=== PATIENT | female | born 1970 | race Caucasian/White ===

== ENCOUNTER → 2017-08-22 12:24 | Outpatient (CLI) | payer MEDICAID, SELFPAY ==
--- NOTE | 2017-08-22 12:28 | US_ITS ---
US transvaginal CLINICAL INDICATION: ITS.REASON: HEAVY BLEEDING ORDERING PHYSICIAN: Armani Mg MD PATIENT AGE: 46 years COMPARISON: None FINDINGS: Uterus measures 9 x 4 x 5 cm with a combined endometrial thickness of 7 mm. There is an IUD present within the mid aspect of the endometrial canal. No uterine mass. The right ovary is 4 x 4 cm and contains a 2.4 cm cyst. There are some internal echoes involving the cyst. The left ovary is 3 x 3 cm and has an unremarkable appearance. No cul-de-sac fluid evident. IMPRESSION: 1. IUD in place. 2. 2.4 cm right ovarian cyst showing some internal echoes. Follow-up suggested
== END ==
PROVIDERS: PCP Internal Medicine Adolescent Medicine; Visit Provider Nurse Practitioner Obstetrics & Gynecology
DX: N93.9 Abnormal uterine and vaginal bleeding, unspecified (principal)
CPT/HCPCS: 76830

== ENCOUNTER → 2017-09-09 10:18 | Outpatient (CLI) | payer MEDICAID, SELFPAY ==
[2017-09-09 10:39] LABS: Basophils % 0.3 % (0.1-2.0); Eosinophils # 0.1 K/mm3 (0.0-0.4); Eosinophils % 1.9 % (0.1-12.0); Hematocrit 44.4 % (37.0-47.0); Hemoglobin 14.5 g/dL (12.2-16.2); Lymphocytes # 1.6 K/mm3 (0.7-4.5); Lymphocytes % 27.6 K/mm3 (10-50); Mean Corpuscular HGB Conc 32.8 g/dL (31.8-35.4); Mean Corpuscular Hemoglobin 30.5 pg (27.0-31.2); Mean Corpuscular Volume 93.1 fl (81-99); Mean Platelet Volume 8.3 fl (7.4-10.4); Monocytes # 0.4 K/mm3 (0.1-1.0); Neutrophils # 3.8 K/mm3 (1.8-7.8); Neutrophils % 63.2 % (37.0-80.0); Platelet Count 207 K/mm3 (142-424); Red Blood Count 4.77 M/mm3 (4.20-5.40); Red Cell Distribution Width 12.3 % (11.5-17.5); White Blood Count 5.9 K/mm3 (4.8-10.8)
[2017-09-09 15:30] LABS: Anion Gap 9.1 mEq/L (5-15); Blood Urea Nitrogen 9 mg/dL (7-18); Carbon Dioxide 30 mmol/L (21.0-32.0); Chloride 103 mmol/L (98-107); Creatinine,Serum 0.63 mg/dL (0.55-1.02); Estimated Glomerular Filt Rate 102 ml/min (>60); GFR (African American) 124 ML/MIN (>60); Glucose 117 mg/dL (74-106); Potassium 4.1 mmoL/L (3.5-5.1); Sodium 138 mmol/L (136-145)
[2017-09-09 15:51] LABS: HCG,Quantitative 0 mIU/mL
== END ==
PROVIDERS: PCP Nurse Practitioner Family; Visit Provider Nurse Practitioner Obstetrics & Gynecology
DX: N92.0 Excessive and frequent menstruation with regular cycle (principal); Z01.812 Encounter for preprocedural laboratory examination
CPT/HCPCS: 36415; 80048; 84702; 85025

== ENCOUNTER 2017-09-11 06:08 | Day surgery (SDC) | payer MEDICAID, SELFPAY ==
[2017-09-08 13:15] VITALS: BMI 23.8
[2017-09-11] VITALS (9 sets, daily range): BP systolic 98–147; BP diastolic 60–85; PULSE 66–87; RESP 16–18; TEMP 36.4–36.7; O2SAT 96–98
[2017-09-11 06:39] LABS: Urine Pregnancy, HCG Qual. Negative (Negative)
[2017-09-11 07:00] LABS: Basophils % 0.4 % (0.1-2.0); Eosinophils # 0.2 K/mm3 (0.0-0.4); Eosinophils % 2.6 % (0.1-12.0); Hematocrit 41.5 % (37.0-47.0); Hemoglobin 13.5 g/dL (12.2-16.2); Lymphocytes # 1.6 K/mm3 (0.7-4.5); Lymphocytes % 24.8 K/mm3 (10-50); Mean Corpuscular HGB Conc 32.7 g/dL (31.8-35.4); Mean Corpuscular Hemoglobin 30.4 pg (27.0-31.2); Mean Corpuscular Volume 92.9 fl (81-99); Mean Platelet Volume 8.8 fl (7.4-10.4); Monocytes # 0.5 K/mm3 (0.1-1.0); Monocytes % 7.8 % (1.7-9.3); Neutrophils # 4.2 K/mm3 (1.8-7.8); Neutrophils % 64.4 % (37.0-80.0); Platelet Count 183 K/mm3 (142-424); Red Blood Count 4.46 M/mm3 (4.20-5.40); Red Cell Distribution Width 12.3 % (11.5-17.5); White Blood Count 6.6 K/mm3 (4.8-10.8)
--- NOTE | 2017-09-11 07:01 | P.PN_ITS ---
[facility] Anesthesia Checklist - Patient Identification Patient Identification: Arm Band - Structural Data Admitted From: Home Planned Operative Procedure/s: Hysteroscopy, D&C Novasure Ablation Consent for Planned Operative Procedure(s) Verified: Yes Verified Documents: Surgical Consent, History and Physical - Additional verifications Anesthesia Reactions: No - Airway Assessment C-Spine Mobility Assessed: Yes TMJ Mobility Assessed: Yes Dentition: Good Dentition - Neurological Assessment Level of Consciousness: Awake, Alert - Anesthesia Plan Anesthesia Risk discussed: Yes Anesthesia Plan: Verified ASA Class: II Anesthesia Type: General [facility] Anesthesia HX I have reviewed the patient's past medical history: Yes Medical History: Denies:: Cancer, Diabetes Mellitus Type 1, Diabetes Mellitus Type 2, MRSA, Seizures Comment: smoker Other Surgeries: Yes: , Tubal Ligation Amputation: No Fractures: No *Family Hx:: Asthma, Diabetes
[2017-09-11 07:06] LABS: Anion Gap 6.3 mEq/L (5-15); Blood Urea Nitrogen 7 mg/dL (7-18); Carbon Dioxide 29 mmol/L (21.0-32.0); Chloride 107 mmol/L (98-107); Creatinine Clearance Estimated 102 mL/min (0-300); Creatinine,Serum 0.65 mg/dL (0.55-1.02); Estimated Glomerular Filt Rate 99 ml/min (>60); GFR (African American) 119 ML/MIN (>60); Glucose 96 mg/dL (74-106); Potassium 4.3 mmoL/L (3.5-5.1); Sodium 138 mmol/L (136-145)
--- NOTE | 2017-09-11 07:55 | P.OP_ITS ---
Date of procedure: 09/11/17 Pre-op Diagnosis:: Menorrhagia Post-op diagnosis:: same Procedure performed:: Hysteroscopy, dilation and curettage, NovaSure ablation, removal of Mirena IUD Surgeon:: Armani Mg MD DIRECTOR OF QUALITY CONTROL:: Geoffrey Machuca Anesthesia: LMA Estimated blood loss (mL): 50 Clinical Note:: She is a 47-year-old lady who complains of extremely heavy irregular periods. She has no daily spotting. She has had an endometrial biopsy which was negative for hyperplasia. We have tried a Mirena IUD. After having discussed the risks and benefits she elected to have a hysteroscopy, D&C and NovaSure ablation. She has had a previous tubal ligation. Operative findings:: She had an anteverted uterus that sounded to 9 cm. The width was 4.6 cm and the length of the endometrial cavity was 5.5 cm. She had what appeared to be a small 2 mm polyp at the right cornua of the uterine cavity. Operative note:: She was taken to the operating room where LMA anesthesia was found to be adequate. She was prepped and draped in normal sterile fashion in the lithotomy position. A weighted speculum was placed in the vagina and the anterior lip of the cervix was grasped with a tenaculum. I dilated the cervix to 4 mm. I then grasped her IUD with a packing forceps and removed this easily. I then further dilated the cervix and inserted a hysteroscope into the uterine cavity. The findings were as previously dictated. We then sounded the uterus to 9 cm and inserted the NovaSure device within the uterine cavity. It was 5.5 cm long and 4.6 cm wide. These values were placed into the NovaSure device. We then ran the device to its program. At the end of the procedure I then once again inspected the endometrial cavity and it seemed to be completely charred. I then injected 30 cc of 0.5% ropivacaine at the 3:00, 5:00, 7:00, and 9:00 positions of the cervix. The patient tolerated the procedure well and was taken to the recovery room in excellent condition. All sponge instrument counts were correct. The estimated blood loss was less than 50 cc. Condition: stable Disposition: PACU Specimens:: Endometrial curettings Complications:: None
--- NOTE | 2017-09-11 07:59 | P.PN_ITS ---
[facility] Anesthesia Record Part I Intake, IV Amount: 250 Estimated blood loss (mL): 24 Urine output (mL): 250 Blood Products used (#): none Blood Pressure: 113/69 SaO2: 96 Pulse Rate: 83 Respiratory Rate: 18 Temperature: 97.6 F Patient is:: Drowsy, Mask O2 Stable to PACU at:: 07:56
--- NOTE | 2017-09-11 07:59 | HMH.ANESII ---
[facility] Anesthesia Record Part II Discharge Time: 08:26 Destination: Surgical Day Care (OP Surgery) PACU nurse assessment reviewed?: Yes Patient Condition:: Good Anesthesia Complications:: None
--- NOTE | 2017-09-11 09:41 | PC.NURSE ---
0756-REPORT RECIEVED FROM NORMA STAHL.
--- NOTE | 2017-09-11 09:48 | PC.NURSE ---
0808-PT REPORTS ABDOMINAL CRAMPING. RATES PAIN 6/10. MEDICATED PER MAR W/MORPHINE 2MG IV. VSS 0813-PT REPORTS ABDOMINAL CRAMPING NOT EASING AND RATES 6/10. MEDICATED PER MAR W/MOPRHINE 2MG IV. VSS. PT EATING ICE CHIPS W/OUT DIFFICULTY. DENIES NAUSEA.
--- NOTE | 2017-09-11 09:51 | PC.NURSE ---
0815-REDNESS AND ITCHING NOTED TO RIGHT FOREARM AFTER PT MEDICATED W/MOPRHINE PER IV. FLUSHED IV SITE WITH 10ML'S NORMAL SALINE AND REDNESS/ITCHING IMPROVED. WILL CONTINUE TO MONITOR.
--- NOTE | 2017-09-11 09:56 | PC.NURSE ---
0819-PT REPORTS ABD CRAMPING WORSENING AND RATES 03/30. MEDICATED PER OCT W/MOPRHINE 2MG IV. VSS. FLUSHED IV SITE WITH 10ML'S NORMAL SALINE AFTER ADMINISTERING MORPHINE R/T REDNESS TO FOREARM ABOVE IV SITE. WILL CONTINUE TO MONITOR. 0824-PT CONTINUES TO EAT ICE CHIPS W/OUT DIFFICULTY. PT REPORTS ABD CRAMPING EASING. PT DENIES NAUSEA. DETAILED REPORT CALLED TO JUAN ANTONIO BARRON. 0826-PT TRANSPORTED TO POST OP VIA STRETCHER W/RAILS UP AND LEFT IN CARE OF JUAN ANTONIO BARRON W/BED LOCKED IN LOWEST POSITION. VSS. PT STABLE.
== END 2017-09-11 09:18 | disposition home or self-care (01) ==
LOC: OR 06:09
PROVIDERS: PCP Nurse Practitioner Family; Visit Provider Nurse Practitioner Obstetrics & Gynecology
PROC: 0U5B8ZZ Destruction of Endometrium, Via Natural or Artificial Opening Endoscopic (ICD-10-PCS; CPT 58563; principal; 2017-09-11 07:30)
DX: N92.0 Excessive and frequent menstruation with regular cycle (principal)
CPT/HCPCS: 58563; 58120; 58301; 80048; 81025; 85025; 96374; J0330; J2405

== ENCOUNTER → 2019-03-22 08:46 | Outpatient (CLI) | payer MEDICAID, SELFPAY ==
--- NOTE | 2019-03-22 08:50 | FL_ITS ---
FL barium swallow COMPARISON: None HISTORY: Dysphasia, patient states intermittently choking on food and/or saliva TECHNIQUE: Fluoroscopy while drinking barium FINDINGS: The swallowing function is normal. Spot films of the cervical esophagus show no abnormal anterior or posterior indentation of the barium column. There is no significant degenerative changes of the cervical spine. Soft motility is normal. There is a small sliding hiatal hernia noted. There is no gastroesophageal reflux seen during the study. IMPRESSION: Small sliding hiatal hernia otherwise unremarkable study
== END ==
PROVIDERS: PCP Nurse Practitioner Family; Visit Provider Surgery
DX: R13.10 Dysphagia, unspecified (principal)
CPT/HCPCS: 74220

== ENCOUNTER 2020-03-04 21:54 | Emergency (ER) | payer OTHER, SELFPAY ==
--- NOTE | 2020-03-04 22:06 | XR_ITS ---
PROCEDURE: XR WRIST LT MIN 3V CLINICAL INDICATION: pain COMPARISON: No exams were available for comparison FINDINGS: No fracture or dislocation. No lytic or blastic change. There is normal mineralization. The joint spaces are well-preserved. No significant degenerative/arthritic changes. No erosive changes evident. Other findings:None. IMPRESSION: No acute findings. Dictated by: Yaniv Russo MD 03/05/2020 05:24 Electronically signed by Yaniv Russo MD in [place] 03/05/2020 05:24
[2020-03-04 22:08] VITALS: BP 157/90; PULSE 76; RESP 18; TEMP 37.7; O2SAT 99; BMI 22.8
--- NOTE | 2020-03-04 23:10 | CT_ITS ---
PROCEDURE: CT WRIST LT WO CON CLINICAL HISTORY: Fall injury Posttraumatic pain, pain with injury and swelling near the thumb COMPARISON: No exams were available for comparison TECHNIQUE: Axial images obtained with sagittal and coronal reformats. All CT scans at the facility use one or more dose reduction, viz: automated exposure control, ma/kV adjustment per patient size (including targeted exams where dose is matched to indication, i.e. head), or iterative reconstruction technique. FINDINGS: No displaced fractures evident. There is some minimal cortical irregularity of Park's tubercle of the distal radius raising the suspicion of a nondisplaced fracture. Please correlate with patient's area of pain and tenderness. No displacement is evident. No other significant anomalies. IMPRESSION: Questionable nondisplaced fracture at the distal radius dorsally/Park's tubercle. Please correlate with patient's area of pain and tenderness. MRI may confirm if clinically desired. Dictated by: Yaniv Russo MD 03/05/2020 05:47 Electronically signed by Yaniv Russo MD in [place] 03/05/2020 05:47
--- NOTE | 2020-03-04 23:14 | HMH.EDUPEXT ---
ED Disposition Clinical Impression: Fracture of wrist Qualifiers: Encounter type: initial encounter Fracture type: closed Laterality: left Qualified Code(s): S62.102A - Fracture of unspecified carpal bone, left wrist, initial encounter for closed fracture Disposition: Home, Self-Care Condition on Discharge: Good Instructions: DI for Wrist Fracture Additional Instructions: ice and wear splint and see ortho Referrals: Jannie Mcgrath [Primary Care Provider] - Rohith Chou MD [Staff Physician] - - Critical Care Critical Care Time: No Attestation: On 03/04/20, the high probability of a clinically significant, sudden or life threatening deterioration of the following system(s) required my full and direct attention, intervention and personal management. The time I documented below is in addition to time spent performing reported procedures but includes the following listed in this critical care notation. Medical Decision Making - Medical Records Medical records reviewed: Yes: I reviewed the patient's medical records. - Michael Inquiry Pt receiving controlled substance: No Vital Signs: 03/04/20 22:08 Temperature 99.9 F H Temperature Source Oral Pulse Rate [Right] 76 Respiratory Rate 18 Blood Pressure [Right Arm] 157/90 H Blood Pressure Mean [Right Arm] 112 02 Sat by Pulse Oximetry 99 Oxygen Delivery Method Room Air Orders (Tests/Meds): ED MEDICATIONS Discontinued Medications Generic Name Dose Route Start Last Admin Trade Name Darrian PRN Reason Stop Dose Admin Morphine Sulfate 4 mg 03/04/20 22:58 03/04/20 23:03 Morphine 4mg/Ml Syringe IM 03/04/20 22:59 4 mg ONCE ONE Administration Promethazine HCl 12.5 mg 03/04/20 22:57 03/04/20 23:03 Phenergan 25mg/Ml 1ml Vial IM 03/04/20 22:58 12.5 mg ONCE ONE Administration Sodium Chloride 25 ml 03/04/20 22:57 03/04/20 23:03 Sod Chlor 0.9% 25ml Bag IV 03/04/20 22:58 Not Given ONCE ONE ORDERS Category Date Time Status CT wrist LT wo con Stat Cat Scan 03/04/20 23:10 Taken XR wrist LT min 3V Stat Exams 03/04/20 22:06 Taken - Radiology Data #1 Image(s): Wrist Image Reviewed: Yes I reviewed the patient's radiology image Preliminary Findings: Abnormal (sts) - CT Data CT Scan: Other (wrist) Time Received: 00:[address] Reviewed: Yes: I have viewed the radiologist's interpretation Preliminary Findings: Abnormal (fx seen ) Upper Extremity HPI - General Chief Complaint: Extremity Injury, Upper Stated Complaint: AO 0715 2100 Wrist injured Time Seen by Provider: 03/04/20 22:20 Mode of Arrival: Ambulatory Source of Information: Patient, Medical Record Limitations: No Limitations Description of Symptoms (Recalled from ER Triage Doc. by RN): Pt fell on left wrist, edema noted, pt able to move fingers, pain radiating up to elbow - History of Present Illness HPI narrative: acute fall with lt wrist injury- fosh injury- no other c/o MD complaint: injury to: left, wrist Onset (ago): hour(s) Other Extremity Injury: Left: wrist Other injuries: none Handedness: right Place: outdoors Severity: moderate Context: fall Associated symptoms: denies other symptoms - Related Data Previous Rx's Medication Instructions Recorded Dicyclomine HCl [Bentyl 10mg 10 mg PO Q8H #20 cap 08/11/18 capsule] Ondansetron [Zofran 4mg ODT] 4 mg PO Q8HP PRN #6 tab.rapdis 08/11/18 Allergies Allergy/AdvReac Type Severity Reaction Status Date / Time No Known Allergies Allergy Verified 03/20/19 11:07 [facility] History - Hepatitis A Screen Drug use history?: No High risk sexual behaviors?: No History of sexually transmitted infection?: No Currently employed?: No Childcare worker?: No Do you have indoor plumbing?: Yes Do you have electricity?: Yes Attestation statement:: This patient has been screened for Hepatitis A risk factors. I have reviewed the patient's past medical history: Yes Medical History: Den
[2020-03-05 00:27] VITALS: BP 146/74; PULSE 72; RESP 14; TEMP 37.1; O2SAT 98
== END 2020-03-05 00:30 | disposition home or self-care (01) ==
PROVIDERS: Emergency Provider Emergency Medicine; PCP Nurse Practitioner Family
DX: S52.502A Unspecified fracture of the lower end of left radius, initial encounter for closed fracture (principal); W01.0XXA Fall on same level from slipping, tripping and stumbling without subsequent striking against object, initial encounter; Y92.019 Unspecified place in single-family (private) house as the place of occurrence of the external cause; F17.210 Nicotine dependence, cigarettes, uncomplicated
CPT/HCPCS: 29125; 73110; 73200; 96372; 99284

== ENCOUNTER 2020-04-06 13:25 | Emergency (ER) | payer OTHER, SELFPAY ==
[2020-04-06 13:39] VITALS: BP 121/76; PULSE 83; RESP 20; TEMP 36.8; O2SAT 98; BMI 23.8
--- NOTE | 2020-04-06 13:53 | HMH.EDUTC ---
[facility] [place] Disposition Clinical Impression: Sinusitis Qualifiers: Sinusitis location: unspecified location Chronicity: unspecified Qualified Code(s): J32.9 - Chronic sinusitis, unspecified Disposition: Home, Self-Care Condition on Discharge: Good Instructions: Sinusitis, Sinus Headache, DI for Sinusitis, Preventing the Spread of Coronavirus Discharge Instructions Additional Instructions: *Monitor Temp, Over the counter Motrin or Tylenol as directed/as needed Tylenol every 4 hours and Motrin every 6 hours (as long as your family doctor has told you that you can take it) for fever or pain. and straight to ER if unable to lower temp less than 101.0 after medication given *Warm salt water gargles may help to soothe the throat *Throat Lozenges *Warm fluids like tea with honey may help to soothe the throat *Sleep elevated *Humidifier/Vaporizer *Flonase 2 sprays in each nostril daily but be aware that it may take 2-3 days before you notice improvement *You was tested for COVID 19, and was given handout with instruction while awaiting your test result and what to do if your test is positive Please follow instruction closely Continue to use inhalers as prescribed Call back to the [facility] tomorrow for your results of your COVID19 test Do not start steriods until tomorrow since you had solu medrol shot in [facility] today Follow up IMMEDIATELY for new or worsening symptoms or no Noticeable improvement over the next 48-72 hours. 911 for difficulty breathing or swallowing Prescriptions: Fluticasone Propionate [Flonase 50mcg nasal spray 16gm] 1 - 2 spr NS DAILY #1 bottle Transmission Status: Received by [facility] #[id number] methylPREDNISolone [Medrol 4mg tab] 4 mg PO DIRECTED #21 tab Transmission Status: Received by [facility] #[id number] Azithromycin [Z-Jaime 250mg Tab] 250 mg PO DIRECTED #6 tab Transmission Status: Received by [facility] #[id number] Referrals: Jannie Mcgrath [Primary Care Provider] - As needed Forms: Work/School Release Medical Decision Making - Michael Inquiry Pt receiving controlled substance: No Michael was queried for this patient: No Vital Signs: 04/06/20 13:39 Temperature 98.3 F Temperature Source Oral Pulse Rate [Right Brachial] 83 Respiratory Rate 20 Blood Pressure [Right Arm] 121/76 Blood Pressure Mean [Right Arm] 91 Blood Pressure Source [Right Arm] Automatic Cuff Blood Pressure Position [Right Arm] Sitting 02 Sat by Pulse Oximetry 98 Oxygen Delivery Method Room Air Orders (Tests/Meds): ORDERS Category Date Time Status Coronavirus 19 Swab (OUTPT) Routine Lab 04/06/20 13:47 Ordered [facility] HPI - General Stated complaint: sore throat,headache Time Seen by Provider: 04/06/20 13:53 Mode of Arrival: Ambulatory Source of Information: Patient Limitations: No Limitations Description of Symptoms (Recalled from Triage Doc. by RN): PATIENT C/O LEFT SIDED HEAD AND FACE PAIN, FATIGUE, AND BODY ACHES X 3 DAYS. PATIENT STATES A PERSON WITH COVID ATE AT THE [employer] SHE WOR[employer] AT RECENTLY HEENT Symptoms (Recalled from RN notes): Yes Resp Symptoms (Recalled from RN notes): No Skin Symptoms (Recalled from RN notes): No MS Symptoms (Recalled from RN notes): Yes Functional Status (Recalled from RN notes): WNL - History of Present Illness Provider Complaint: Patient states that she has been having sinus pressure on the left side of her face States that she feels pressure in her left eye and teeth States that last night she had yellowish green drainage from her sinuses and was worse when she laid down States that she has also been having body aches and fatigue and person recently ate in [employer] that a few days after eating there with COVID States that she has felt feverish but not had a fever that she is aware of - Related Data Previous Rx's Medication Instructions Recorded Azithromycin [Z-Jaime 250mg Tab] 250 mg PO DIRECTED #6 tab 04/06/20 Fluticasone Propionate [Flona
[2020-04-06 14:29] VITALS: BP 121/76; PULSE 83; RESP 20; TEMP 36.8; O2SAT 98
== END 2020-04-06 14:34 | disposition home or self-care (01) ==
PROVIDERS: Emergency Provider Nurse Practitioner; PCP Nurse Practitioner Family
DX: J01.90 Acute sinusitis, unspecified (principal); Z20.828 Contact with and (suspected) exposure to other viral communicable diseases; F17.210 Nicotine dependence, cigarettes, uncomplicated
CPT/HCPCS: 96372; 99202; U0003

== ENCOUNTER 2021-03-26 12:31 | Emergency (ER) | payer OTHER, SELFPAY ==
[2021-03-26 12:35] VITALS: BP 137/76; PULSE 88; RESP 20; TEMP 36.9; O2SAT 96; BMI 23.3
--- NOTE | 2021-03-26 13:05 | HMH.EDUTC ---
[facility] Disposition Clinical Impression: Viral syndrome Disposition: Home, Self-Care Condition on Discharge: Good Instructions: DI for Cough -- Adult, DI for COVID-19 (Suspected or Confirmed ), Coronavirus Disease 2019, Preventing the Spread of Coronavirus Discharge Instructions Additional Instructions: *Monitor Temp, Over the counter Motrin or Tylenol as directed/as needed Tylenol every 4 hours and Motrin every 6 hours (as long as your family doctor has told you that you can take it) for fever or pain. and straight to ER if unable to lower temp less than 101.0 after medication given *Warm salt water gargles may help to soothe the throat *Throat Lozenges *Warm fluids like tea with honey may help to soothe the throat *Sleep elevated *Humidifier/Vaporizer *You were tested for today for COVID19 your test result should be back in the next 24-48 hours, you may call to the [facility] to see if your test results are back in the next 48 hours [phone] [facility] hours are 9am-9pm You was given a handout with instructions for Self Quarantine and Self isolation for while you wait on test results and what to do if they are positive If you are positive the Health Dept will be contacting you also Follow up IMMEDIATELY for new or worsening symptoms or no Noticeable improvement over the next 48-72 hours. 911 for difficulty breathing or swallowing Prescriptions: Benzonatate [Tessalon Perle 100mg Cap*] 100 mg PO TID PRN #15 cap PRN Reason: Cough Transmission Status: Pending to [facility] #[id number] Referrals: Jannie Mcgrath [Primary Care Provider] - As needed Forms: Work/School Release Time of Disposition: 13:19 Medical Decision Making - Michael Inquiry Pt receiving controlled substance: No Michael was queried for this patient: No Vital Signs: 03/26/21 12:35 Temperature 98.4 F Temperature Source Oral Pulse Rate [Left Brachial] 88 Respiratory Rate 20 Blood Pressure [Left Arm] 137/76 Blood Pressure Mean [Left Arm] 96 Blood Pressure Source [Left Arm] Automatic Cuff Blood Pressure Position [Left Arm] Sitting 02 Sat by Pulse Oximetry 96 Oxygen Delivery Method Room Air - Lab Data Lab results reviewed: Yes: I reviewed the patient's lab results. Orders (Tests/Meds): ORDERS Category Date Time Status Covid-19 Nasal PCR ([facility]) Routine Lab 03/26/21 12:45 Received [facility] HPI - General Stated complaint: covid test Time Seen by Provider: 03/26/21 13:05 Mode of Arrival: Ambulatory Source of Information: Patient Limitations: No Limitations Description of Symptoms (Recalled from Triage Doc. by RN): PATIENT C/O CHILLS, SOA, CONGESTION, COUGH, AND BODY ACHES SINCE YESTERDAY HEENT Symptoms (Recalled from RN notes): Yes Resp Symptoms (Recalled from RN notes): Yes Skin Symptoms (Recalled from RN notes): No MS Symptoms (Recalled from RN notes): No Functional Status (Recalled from RN notes): WNL - History of Present Illness Provider Complaint: Patient states that her daughter had strep throat last week and then she was around someone that tested positive for COVID States that she has been having sore throat, feeling congested and SOA with coughing at times Denies productive cough, body aches and chills - Related Data Previous Rx's Medication Instructions Recorded Benzonatate [Tessalon Perle 100mg 100 mg PO TID PRN #15 cap 03/26/21 Cap*] Allergies Allergy/AdvReac Type Severity Reaction Status Date / Time No Known Allergies Allergy Verified 09/14/20 10:00 - Worker's Comp Is this a Worker's Comp case?: No [facility] History - Hepatitis A Screen Drug use history?: No High risk sexual behaviors?: No History of sexually transmitted infection?: No Currently employed?: No Childcare worker?: No Do you have indoor plumbing?: Yes Do you have electricity?: Yes Attestation statement:: This patient has been screened for Hepatitis A risk factors. I have reviewed the patient's past medical history: Yes Medical History: D
[2021-03-26 13:21] VITALS: BP 137/76; PULSE 88; RESP 20; TEMP 36.9; O2SAT 96
[2021-03-26 15:42] LABS: UTC Strep Screen (Rapid) Negative (Negative)
== END 2021-03-26 13:27 | disposition home or self-care (01) ==
PROVIDERS: Emergency Provider Nurse Practitioner; PCP Nurse Practitioner Family
DX: B34.9 Viral infection, unspecified (principal); Z20.822 Contact with and (suspected) exposure to COVID-19; F17.210 Nicotine dependence, cigarettes, uncomplicated
CPT/HCPCS: 87880; 99203; G0463; U0003

== ENCOUNTER 2021-09-01 19:47 | Emergency (ER) | payer OTHER, SELFPAY ==
[2021-09-01 20:00] VITALS: BP 115/59; PULSE 105; RESP 18; TEMP 37.9; O2SAT 98; BMI 24.1
[2021-09-01 20:07] VITALS: BP 115/59; PULSE 105; RESP 18; TEMP 37.9; O2SAT 98; BMI 24.3
--- NOTE | 2021-09-01 20:22 | HMH.EDUTC ---
[facility] [place] Disposition Clinical Impression: Viral syndrome Disposition: Home, Self-Care Condition on Discharge: Good Instructions: DI for Viral Syndrome, DI for Fever (Symptom) -- Adult, DI for COVID-19 (Suspected or Confirmed ) Additional Instructions: *Monitor Temp, Over the counter Motrin or Tylenol as directed/as needed Tylenol every 4 hours and Motrin every 6 hours (as long as your family doctor has told you that you can take it) for fever or pain. and straight to ER if unable to lower temp less than 101.0 after medication given *Warm salt water gargles may help to soothe the throat *Throat Lozenges *Warm fluids like tea with honey may help to soothe the throat *Sleep elevated *Humidifier/Vaporizer Make sure to be drinking plenty of fluids like water and gatoraide to help keep you hydrated Over the counter Cold medications may help with symptoms like david seltzer plus if you can take it Make sure to eat foods rich in Vitamin C Your throat swab was sent for culture. Those results are typically sent to your primary care. Be sure to follow up in 2-3 days with your family doctor/primary care physician if no improvement so they can review those result and treat if necessary. If you don?t have a primary care doctor, I recommend you get one but in the mean time, you will have to return to a walk in clinic Follow up IMMEDIATELY for new or worsening symptoms or no Noticeable improvement over the next 48-72 hours. 911 for difficulty breathing or swallowing You were tested for today for COVID19 your test result should be back in the next 24-48 hours, you may check your results on the [facility] My Health Portal if you have trouble logging on you may call support to help you You was given a handout with instructions for Self Quarantine and Self isolation for while you wait on test results and what to do if they are positive If you are positive the Health Dept will be contacting you also Make sure to take your Vitamins Vit. C Vit D and Zinc if you can take them Referrals: Jannie Mcgrath [Primary Care Provider] - As needed Forms: Work/School Release Medical Decision Making - Michael Inquiry Pt receiving controlled substance: No Michael was queried for this patient: No Vital Signs: 09/01/21 20:00 09/01/21 20:07 Temperature 100.2 F H 100.2 F H Temperature Source Oral Oral Pulse Rate [Radial] 105 H 105 H Respiratory Rate 18 18 Blood Pressure [Right Arm] 115/59 L 115/59 L Blood Pressure Mean [Right Arm] 77 77 Blood Pressure Source [Right Arm] Automatic Cuff Blood Pressure Position [Right Arm] Sitting 02 Sat by Pulse Oximetry 98 98 Oxygen Delivery Method Room Air - Lab Data Lab results reviewed: Yes: I reviewed the patient's lab results. Lab Results 09/01/21 20:10: Influenza Type A Ag Negative, Influenza Type B Ag Negative 09/01/21 20:28: Strep Scn Rapid [facility] Negative Orders (Tests/Meds): ED MEDICATIONS Discontinued Medications Generic Name Dose Route Start Last Admin Trade Name Freq PRN Reason Stop Dose Admin Acetaminophen 650 mg 09/01/21 20:29 Acetaminophen 325mg Tab PO 09/01/21 20:30 ONCE ONE ORDERS Category Date Time Status Covid-19 Nasal PCR ([facility]) Routine Lab 09/01/21 20:06 Received Strep Screen Confirmation Stat Micro 09/01/21 20:28 Received Medical Decision Narrative: Patient states that she is feeling a little better after tylenol [facility] HPI - General Stated complaint: HOWE,Body aches Time Seen by Provider: 09/01/21 20:23 Mode of Arrival: Ambulatory Source of Information: Patient Limitations: No Limitations Description of Symptoms (Recalled from Triage Doc. by RN): pt c/o fever, body aches, HOWE, and loss of appetite. HEENT Symptoms (Recalled from RN notes): Yes Resp Symptoms (Recalled from RN notes): No Skin Symptoms (Recalled from RN notes): No MS Symptoms (Recalled from RN notes): No Functional Status (Recalled from RN notes): wnl - History of Present Illness Provider Com
[2021-09-01 20:25] LABS: UTC Influenza A Antigen Negative (Negative); UTC Influenza B Antigen Negative (Negative)
[2021-09-01 20:34] LABS: UTC Strep Screen (Rapid) Negative (Negative)
[2021-09-01 20:53] VITALS: BP 135/70; PULSE 98; RESP 16; TEMP 37.7
== END 2021-09-01 20:57 | disposition home or self-care (01) ==
PROVIDERS: Emergency Provider Nurse Practitioner; PCP Nurse Practitioner Family
DX: U07.1 COVID-19 (principal); B34.9 Viral infection, unspecified
CPT/HCPCS: 87804; 87880; 99203; C9803; G0463; U0003; U0005

== ENCOUNTER 2021-11-25 16:18 | Emergency (ER) | payer OTHER, SELFPAY ==
[2021-11-25] VITALS (12 sets, daily range): BP systolic 93–173; BP diastolic 55–93; PULSE 68–85; RESP 15–22; TEMP 36.6–36.9; O2SAT 95–100; BMI 23.8; BMI 24.5
--- NOTE | 2021-11-25 16:17 | ECG_ITS ---
APPROVED REPORT Exam: Resting ECG HR:85 bpm ECG Measurements Heart Rate 85 AXES NH 132 P 73 QRSd 88 QRS 84 QT 345 T 68 QTc 387 Conclusion SINUS RHYTHM NORMAL ECG UNCONFIRMED REPORT Electronically signed by : Geoffrey Benton MD 11/26/2021 14:51:10
--- NOTE | 2021-11-25 16:21 | XR_ITS ---
PROCEDURE INFORMATION: Exam: XR Chest Exam date and time: 11/25/2021 4:25 PM Age: 51 years old Clinical indication: Shortness of breath; Additional info: SOB TECHNIQUE: Imaging protocol: XR of the chest. Views: 1 view. COMPARISON: No relevant prior studies available. FINDINGS: Lungs: Unremarkable. No consolidation. Pleural spaces: Unremarkable. No pleural effusion. No pneumothorax. Heart/Mediastinum: Unremarkable. No cardiomegaly. Bones/joints: Unremarkable. IMPRESSION: No acute findings.
[2021-11-25 16:43] LABS: Basophils # 0.1 K/mm3 (0-0.2); Eosinophils # 0.1 K/mm3 (0.0-0.4); Eosinophils % 1.3 % (0.1-12.0); Hemoglobin 14.5 g/dL (12.2-16.2); Lymphocytes # 2.1 K/mm3 (0.7-4.5); Lymphocytes % 25.4 % (10-50); Mean Corpuscular Hemoglobin 31.8 pg (27.0-31.2); Mean Corpuscular Volume 96.3 fl (81-99); Mean Platelet Volume 8.8 fl (7.4-10.4); Monocytes # 0.6 K/mm3 (0.1-1.0); Neutrophils # 5.3 K/mm3 (1.8-7.8); Neutrophils % 65.3 % (37.0-80.0); Platelet Count 229 K/mm3 (142-424); Red Blood Count 4.56 M/mm3 (4.20-5.40); Red Cell Distribution Width 13.4 % (11.5-17.5); White Blood Count 8.2 K/mm3 (4.8-10.8)
[2021-11-25 16:51] LABS: Anion Gap 9.2 mEq/L (5-15); Blood Urea Nitrogen 8 mg/dl (7-17); Calcium 8.7 mg/dl (8.4-10.2); Carbon Dioxide 27 mmol/L (22.0-30.0); Chloride 107 mmol/L (98-107); Creatinine Clearance Estimated 106 mL/min (50-200); Estimated Glomerular Filt Rate 106 ml/min (>60); GFR (African American) 129 ML/MIN (>60); Glucose 118 mg/dl (74-100); Potassium 3.2 mmoL/L (3.5-5.1); Sodium 140 mmol/L (136-145)
[2021-11-25 17:04] LABS: Troponin I < 0.01 ng/ml (0.00-0.034)
--- NOTE | 2021-11-25 19:11 | HMH.EDGENADL ---
ED Disposition Clinical Impression: Arm paresthesia, left, Facial paresthesia, Thyroid nodule Disposition: Home, Self-Care Condition on Discharge: Good Additional Instructions: Follow-up with your primary care provider tomorrow as scheduled. A thyroid nodule was discovered during your evaluation today. It is recommended that you follow-up with a primary care provider for further evaluation. Return to the emergency department if symptoms worsen. Referrals: Jannie Mcgrath [Primary Care Provider] - - Critical Care Critical Care Time: No Attestation: On 11/25/21, the high probability of a clinically significant, sudden or life threatening deterioration of the following system(s) required my full and direct attention, intervention and personal management. The time I documented below is in addition to time spent performing reported procedures but includes the following listed in this critical care notation. Medical Decision Making - Michael Inquiry Pt receiving controlled substance: No Vital Signs: 11/25/21 16:18 11/25/21 16:19 11/25/21 16:30 Temperature 98 F Temperature Source Oral Pulse Rate 85 78 Pulse Rate [Radial] 85 Respiratory Rate 16 22 Blood Pressure 136/82 133/84 Blood Pressure [Right Arm] 136/82 Blood Pressure Mean [Right Arm] 100 Blood Pressure Position [Right Arm] Sitting 02 Sat by Pulse Oximetry 97 98 97 Oxygen Delivery Method Room Air Room Air Room Air 11/25/21 17:01 11/25/21 17:30 11/25/21 18:00 Temperature Temperature Source Pulse Rate 81 82 70 Pulse Rate [Radial] Respiratory Rate 15 16 15 Blood Pressure 173/93 H 112/74 93/55 L Blood Pressure [Right Arm] Blood Pressure Mean [Right Arm] Blood Pressure Position [Right Arm] 02 Sat by Pulse Oximetry 97 96 98 Oxygen Delivery Method Room Air Room Air Room Air 11/25/21 18:01 11/25/21 18:30 Temperature Temperature Source Pulse Rate 77 72 Pulse Rate [Radial] Respiratory Rate 16 Blood Pressure 118/70 116/69 Blood Pressure [Right Arm] Blood Pressure Mean [Right Arm] Blood Pressure Position [Right Arm] 02 Sat by Pulse Oximetry 95 100 Oxygen Delivery Method Room Air Room Air - Lab Data Lab Results 11/25/21 16:25: WBC 8.2, RBC 4.56, Hgb 14.5, Hct 44.0, MCV 96.3, MCH 31.8 H, MCHC 33.0, RDW 13.4, Plt Count 229, MPV 8.8, Neut % (Auto) 65.3, Lymph % (Auto) 25.4, Greenlee % (Auto) 7.0, Eos % (Auto) 1.3, Baso % (Auto) 1.0, Neut # (Auto) 5.3, Lymph # (Auto) 2.1, Greenlee # (Auto) 0.6, Eos # (Auto) 0.1, Baso # (Auto) 0.1 11/25/21 16:25: Sodium 140, Potassium 3.2 L, Chloride 107, Carbon Dioxide 27, Anion Gap 9.2, BUN 8, Creatinine 0.60, Estimated Creat Clear 106, Estimated GFR 106, Est GFR ( Amer) 129, Glucose 118 H, Calcium 8.7, Troponin I < 0.01 11/25/21 19:26: Troponin I < 0.01 Result diagrams: 11/25/21 16:25 11/25/21 16:25 Orders (Tests/Meds): ED MEDICATIONS Discontinued Medications Generic Name Dose Route Start Last Admin Trade Name Freq PRN Reason Stop Dose Admin Iopamidol 100 ml 11/25/21 19:42 11/25/21 19:43 Iopamidol-370 (76%);100ml Bottle IV 11/25/21 19:43 100 ml ONCE ONE Administration Sodium Chloride 50 ml 11/25/21 19:42 11/25/21 19:43 0.9 % Sodium Chloride 50 Ml Vial IV 11/25/21 19:43 50 ml ONCE ONE Administration Sodium Chloride 10 ml 11/25/21 19:42 11/25/21 19:43 Sodium Chloride 0.9% 10ml Syr (Rad Only) IV 11/25/21 19:43 10 ml ONCE ONE Administration ORDERS Category Date Time Status Troponin I Q3H Lab 11/25/21 22:30 Ordered - Radiology Data #1 Image(s): Chest Image Reviewed: Yes I have reviewed radiologist's interpretation PROCEDURE INFORMATION: Exam: XR Chest Exam date and time: 11/25/2021 4:25 PM Age: 51 years old Clinical indication: Shortness of breath; Additional info: SOB TECHNIQUE: Imaging protocol: XR of the chest. Views: 1 view. COMPARISON: No relevant prior studies available. FINDING
--- NOTE | 2021-11-25 19:24 | CT_ITS ---
PROCEDURE INFORMATION: Exam: CT Angiography Neck With Contrast Exam date and time: 11/25/2021 7:35 PM Age: 51 years old Clinical indication: Weakness; Additional info: Left arm and face numbness TECHNIQUE: Imaging protocol: Computed tomography angiography of the neck with contrast. 3D rendering (Not supervised by radiologist): MIP and/or 3D reconstructed images were created by the technologist. Radiation optimization: All CT scans at this facility use at least one of these dose optimization techniques: automated exposure control; mA and/or kV adjustment per patient size (includes targeted exams where dose is matched to clinical indication); or iterative reconstruction. Contrast material: ISOVUE 370; Contrast volume: 100 ml; Contrast route: INTRAVENOUS (IV); COMPARISON: CT HEAD/BRAIN WO CON 11/25/2021 7:31 PM FINDINGS: Right common carotid artery: No stenosis. No dissection or occlusion. Right internal carotid artery: No stenosis of the extracranial segment. No dissection or occlusion. Right external carotid artery: No occlusion or stenosis of the origin. Left common carotid artery: No stenosis. No dissection or occlusion. Left internal carotid artery: No stenosis of the extracranial segment. No dissection or occlusion. Left external carotid artery: No occlusion or stenosis of the origin. Right vertebral artery: No stenosis. No dissection or occlusion. Left vertebral artery: No stenosis. No dissection or occlusion. Thyroid: Complex appearing left thyroid nodule measuring 15 x 21 mm. Soft tissues: Normal. No significant soft tissue swelling. Bones/joints: No acute fracture. Lungs: Suspected emphysema. Evaluation is limited secondary to motion. IMPRESSION: Complex appearing left thyroid nodule for which follow-up ultrasound is recommended on a nonemergent basis. REFERENCES: NASCET CRITERIA. The degree of internal carotid artery stenosis is based on NASCET criteria. Normal is no stenosis. Mild is less than 50% stenosis. Moderate is 50-69% stenosis. Severe is 70% to 99% stenosis. Total occlusion is no detectable patent lumen.
--- NOTE | 2021-11-25 19:24 | CT_ITS ---
PROCEDURE INFORMATION: Exam: CT Head Without Contrast Exam date and time: 11/25/2021 7:31 PM Age: 51 years old Clinical indication: Weakness, extremity; Left; Additional info: Left arm and face numbness TECHNIQUE: Imaging protocol: Computed tomography of the head without contrast. Radiation optimization: All CT scans at this facility use at least one of these dose optimization techniques: automated exposure control; mA and/or kV adjustment per patient size (includes targeted exams where dose is matched to clinical indication); or iterative reconstruction. COMPARISON: No relevant prior studies available. FINDINGS: Brain: Normal. No hemorrhage. Unremarkable white matter. No mass effect. Cerebral ventricles: No ventriculomegaly. Paranasal sinuses: Visualized sinuses are unremarkable. No fluid levels. Mastoid air cells: Visualized mastoid air cells are well aerated. Bones/joints: Unremarkable. No acute fracture. Soft tissues: Unremarkable. IMPRESSION: No acute intracranial abnormality.
--- NOTE | 2021-11-25 19:24 | CT_ITS ---
PROCEDURE INFORMATION: Exam: CT Angiography Head With Contrast, Arteriography Exam date and time: 11/25/2021 7:35 PM Age: 51 years old Clinical indication: Weakness; Additional info: Left arm and face numbness TECHNIQUE: Imaging protocol: Computed tomography angiography of the head with contrast. Exam focused on the arteries. 3D rendering (Not supervised by radiologist): MIP and/or 3D reconstructed images were created by the technologist. Radiation optimization: All CT scans at this facility use at least one of these dose optimization techniques: automated exposure control; mA and/or kV adjustment per patient size (includes targeted exams where dose is matched to clinical indication); or iterative reconstruction. Contrast material: ISOVUE 370; Contrast volume: 100 ml; Contrast route: INTRAVENOUS (IV); COMPARISON: CT HEAD/BRAIN WO CON 11/25/2021 7:31 PM FINDINGS: ANTERIOR CIRCULATION: Right internal carotid artery: Unremarkable. Intracranial segment is patent with no significant stenosis. No aneurysm. Right middle cerebral artery: Unremarkable. No occlusion or significant stenosis. No aneurysm. Right anterior cerebral artery: Unremarkable. No occlusion or significant stenosis. No aneurysm. Left internal carotid artery: Unremarkable. Intracranial segment is patent with no significant stenosis. No aneurysm. Left middle cerebral artery: Unremarkable. No occlusion or significant stenosis. No aneurysm. Left anterior cerebral artery: Unremarkable. No occlusion or significant stenosis. No aneurysm. POSTERIOR CIRCULATION: Right vertebral artery: Unremarkable. No occlusion or significant stenosis. No aneurysm. Left vertebral artery: Unremarkable. No occlusion or significant stenosis. No aneurysm. Basilar artery: Unremarkable. No occlusion or significant stenosis. No aneurysm. Right posterior cerebral artery: Unremarkable. No occlusion or significant stenosis. No aneurysm. Left posterior cerebral artery: Unremarkable. No occlusion or significant stenosis. No aneurysm. Brain: No acute intracranial hemorrhage. No significant white matter disease. No edema. Cerebral ventricles: No ventriculomegaly. Bones/joints: No acute fracture. Soft tissues: Unremarkable. IMPRESSION: No large vessel stenosis or occlusion.
--- NOTE | 2021-11-25 19:26 | PC.NURSE ---
collected 2nd troponin via PIV.
[2021-11-25 20:00] LABS: Troponin I < 0.01 ng/ml (0.00-0.034)
== END 2021-11-25 20:38 | disposition home or self-care (01) ==
PROVIDERS: Emergency Provider Emergency Medicine; PCP Nurse Practitioner Family
DX: R20.0 Anesthesia of skin (principal); E04.1 Nontoxic single thyroid nodule; F17.210 Nicotine dependence, cigarettes, uncomplicated
CPT/HCPCS: 70450; 70496; 70498; 71045; 80048; 84484; 85025; 93005; 99284; Q9967

== ENCOUNTER → 2021-12-28 09:48 | Outpatient (CLI) | payer OTHER, SELFPAY ==
--- NOTE | 2021-12-28 09:50 | US_ITS ---
FINAL REPORT CLINICAL HISTORY: NEOPLASM O UNCERTAIN BEHAVIOR OF THYROID GLAND FINDINGS: Sonographic images of the thyroid were obtained. The right lobe of the thyroid measures 1.4 x 3.6 x 1.2 cm. The left lobe of the thyroid measures 1.8 x 4.0 x 1.3 cm. The isthmus is normal. There is a nodule in the right thyroid lobe which is solid and isoechoic measuring 6 x 5 x 4 mm consistent with TI-RADS category 3. There is a cystic nodule in the right lobe of the thyroid measuring 2 x 2 x 1 cm consistent with TI-RADS category 0. In addition, there is a mixed cystic and solid nodule in the left lobe of the thyroid measuring 22 x 15 x 17 mm consistent with TI-RADS category 2. IMPRESSION: Bilateral thyroid nodules as detailed above. No follow-up is required. Reviewed, Interpreted and Dictated by Armando Whitamn III, MD Transcribed by Gracy Hardy Authenticated by Armando Whitman III, MD on 12/28/2021 01:21:33 PM [facility]
== END ==
PROVIDERS: PCP Nurse Practitioner Family; Visit Provider Nurse Practitioner Family
DX: D44.0 Neoplasm of uncertain behavior of thyroid gland (principal)
CPT/HCPCS: 76536

== ENCOUNTER → 2022-06-08 11:24 | Outpatient (CLI) | payer OTHER, SELFPAY ==
[2022-06-09 10:32] LABS: Estradiol 81.6 pg/mL (.); FSH 11.3 mIU/mL (.); LH 13.8 mIU/mL (.)
== END ==
PROVIDERS: PCP Family Medicine; Visit Provider Nurse Practitioner Obstetrics & Gynecology
DX: N95.1 Menopausal and female climacteric states (principal); Z79.890 Hormone replacement therapy
CPT/HCPCS: 36415; 82670; 83001; 83002

== ENCOUNTER → 2022-07-04 10:27 | Outpatient (CLI) | payer OTHER, SELFPAY ==
--- NOTE | 2022-07-04 10:27 | MM_ITS ---
PROCEDURE INFORMATION: Exam: MG Bilateral Screening 3D Mammography Exam date and time: 07/04/2022 10:21 AM Age: 51 years old Clinical indication: Screening examination; Additional info: Screening mammogram TECHNIQUE: Imaging protocol: Bilateral Screening tomosynthesis and 2D mammography including computer-aided detection (CAD) when performed. COMPARISON: No relevant prior studies available. FINDINGS: MAMMOGRAPHY: Breast composition: The breasts are heterogeneously dense, which may obscure small masses. Mass: No suspicious masses. Architectural distortion: No suspicious distortion. Calcifications: No suspicious calcifications. Asymmetric density: None. Skin thickening: None. Axillary adenopathy: None. IMPRESSION: 1. No mammographic evidence of malignancy. Annual screening is recommended unless otherwise clinically indicated. 2. Of note, patient reports having prior mammograms. Every attempt should be made to obtain prior mammograms for comparison. If/when these prior exams become available for comparison, an addendum will be made, if necessary. ASSESSMENT: BI-RADS Category 1: Negative
== END ==
PROVIDERS: PCP Family Medicine; Visit Provider Nurse Practitioner Obstetrics & Gynecology
DX: Z12.31 Encounter for screening mammogram for malignant neoplasm of breast (principal)
CPT/HCPCS: 77063; 77067

== ENCOUNTER → 2023-06-26 17:12 | Outpatient (CLI) | payer OTHER, SELFPAY | PROVIDERS: PCP Nurse Practitioner Family; Visit Provider Nurse Practitioner Family | DX: J02.9 Acute pharyngitis, unspecified (principal); R51.9 Headache, unspecified; R05.8 Other specified cough; R09.89 Other specified symptoms and signs involving the circulatory and respiratory systems; R06.02 Shortness of breath; R53.83 Other fatigue | CPT/HCPCS: 87070; 87635 ==

== ENCOUNTER 2023-07-18 10:21 | Emergency (ER) | payer OTHER, SELFPAY ==
--- NOTE | 2023-07-18 11:21 | EXP.UTC ---
Discharge Plan Disposition Patient Disposition: Home, Self-Care Condition: Good Prescriptions Prescriptions: New prednisone 10 mg tablet 10 mg PO DIRECTED 9 Days Qty: 21 0RF Rx Instructions: Take 4 tablets daily for 3 days, then take 2 tablets daily for 3 days, then take 1 tablet daily for 3 days, then stop. benzonatate [benzonatate] 100 mg capsule 100 mg PO TIDP PRN (Reason: Cough) Qty: 30 0RF levofloxacin [levofloxacin] 500 mg tablet 500 mg PO DAILY Qty: 7 0RF ibuprofen [IBU] 800 mg tablet 800 mg PO Q8HP PRN (Reason: Moderate Pain) Qty: 30 0RF No Action prednisone 20 mg tablet See Rx Instructions PO DAILY Qty: 26 0RF Rx Instructions: 60 mg daily for 5 days then 40 mg daily for 4 days then 20 mg daily for 3 days. metronidazole 0.75 % cream 1 applic topical BID Qty: 45 12RF budesonide-formoterol [Symbicort] 160-4.5 mcg/actuation HFA aerosol inhaler See Rx Instructions .ROUTE .COMPLEX Qty: 10.2 2RF Dose Instruction: 1 PUFF INHALED TWICE A DAY FOR COPD FOR 30 DAYS Rx Instructions: 1 PUFF INHALED TWICE A DAY FOR COPD FOR 30 DAYS albuterol sulfate [Ventolin HFA] 90 mcg/actuation HFA aerosol inhaler See Rx Instructions .ROUTE .COMPLEX Qty: 18 2RF Dose Instruction: 2 PUFF INHALED EVERY 4-6 HOURS NEEDED FOR COPD Rx Instructions: 2 PUFF INHALED EVERY 4-6 HOURS NEEDED FOR COPD amoxicillin-pot clavulanate 875-125 mg tablet 1 tab PO BID 10 Days Qty: 20 0RF ipratropium-albuterol 0.5 mg-3 mg(2.5 mg base)/3 mL solution for nebulization 3 ml inhalation BID Qty: 90 4RF Referrals Follow up/Referrals: Orlando Thomason MD [Primary Care Provider] - See instructions Activity Restrictions/Add. Instructions Additional Instructions/Restrictions: Drink plenty of fluids. Take tylenol or ibuprofen for pain or fever. Take the medications as directed. Follow up with your regular doctor. GO TO THE ER FOR ANY WORSENING SYMPTOMS Don't start the oral steroids until tomorrow, since you had the shot here today. Clinical Impressions Clinical Impression: Acute bronchitis Instructions Patient Instructions: Acute Bronchitis, DI for Acute Bronchitis, Ceftriaxone Injection, Levofloxacin, Dexamethasone Injection Discharge ED Provider: Jarod Lima [facility] HPI General Stated complaint: body aches, headache Time Seen by Provider: 07/18/23 11:21 History of Present Illness Provider Complaint: She states that for the past 2.5 weeks she has had chest and sinus congestion. Related Data Previous Rx's Medication Instructions Recorded metronidazole 0.75 % topical cream 1 applic topical BID #45 grams 05/26/22 albuterol sulfate 90 mcg/actuation See Rx Instructions .Route 06/23/23 aerosol inhaler (Ventolin HFA) .COMPLEX #18 grams budesonide-formoterol HFA 160 See Rx Instructions .Route 06/23/23 mcg-4.5 mcg/actuation aerosol .COMPLEX #10.2 grams inhaler (Symbicort) amoxicillin 875 mg-potassium 1 tab PO BID 10 days #20 tabs 06/29/23 clavulanate 125 mg tablet prednisone 20 mg tablet See Rx Instructions PO DAILY #26 07/06/23 tabs ipratropium 0.5 mg-albuterol 3 mg 3 ml inhalation BID #90 mL 07/10/23 (2.5 mg base)/3 mL nebulization soln benzonatate 100 mg capsule 100 mg PO TIDP PRN Cough #30 caps 07/18/23 ibuprofen 800 mg tablet (IBU) 800 mg PO Q8HP PRN Moderate Pain 07/18/23 #30 tabs levofloxacin 500 mg tablet 500 mg PO DAILY #7 tabs 07/18/23 prednisone 10 mg tablet 10 mg PO DIRECTED 9 days #21 07/18/23 tabs Allergies Allergy/AdvReac Type Severity Reaction Status Date / Time No Known Allergies Allergy Verified 07/18/23 11:54 [facility] Disclaimer: The information contained in this section may have been updated after the patient was seen, as this information can be updated by other users. Medical History COPD (chronic obstructive pulmonary disease) Post e
[2023-07-18 11:33] LABS: UTC Influenza A Antigen Negative (Negative); UTC Influenza B Antigen Negative (Negative)
[2023-07-18 11:40] VITALS: BP 136/76; PULSE 86; RESP 18; TEMP 37.8; O2SAT 98; BMI 22.3
--- NOTE | 2023-07-18 11:55 | XR_ITS ---
FINAL REPORT CLINICAL HISTORY: . COUGH, CONGESTION FINDINGS: CHEST TWO-VIEW The lungs are clear. There is no evidence of effusion or other pleural disease. The mediastinum as a normal appearance. The cardiac silhouette is unremarkable. IMPRESSION: No acute findings. Reviewed, Interpreted and Dictated by Unruly Ta MD Transcribed by James Solano Authenticated and [facility]
[2023-07-18 12:45] VITALS: BP 136/76; PULSE 86; RESP 18; TEMP 37.8; O2SAT 98
== END 2023-07-18 12:45 | disposition home or self-care (01) ==
PROVIDERS: Emergency Provider Nurse Practitioner Family; PCP Family Medicine
DX: J20.9 Acute bronchitis, unspecified (principal); R51.9 Headache, unspecified; R09.89 Other specified symptoms and signs involving the circulatory and respiratory systems; R09.81 Nasal congestion; F17.210 Nicotine dependence, cigarettes, uncomplicated; J44.9 Chronic obstructive pulmonary disease, unspecified
CPT/HCPCS: 71046; 87804; 96372; 99212; 99214; G0463; J0696

== ENCOUNTER 2024-03-04 10:20 | Outpatient (CLI) | payer OTHER, SELFPAY ==
[2024-03-04 10:58] LABS: Alanine Aminotransferase 29 U/L (12-78); Albumin/Globulin Ratio 1.4 (1.1-1.8); Alkaline Phosphatase 72 U/L (38-126); Anion Gap 7.2 mEq/L (5-15); Aspartate Amino Transferase 31 U/L (14-36); Bilirubin,Total 0.5 mg/dl (0.2-1.3); Blood Urea Nitrogen 13 mg/dl (7-17); Calcium 9.3 mg/dl (8.4-10.2); Carbon Dioxide 26 mmol/L (22.0-30.0); Chloride 109 mmol/L (98-107); Chol/HDL Ratio 2.8 (1-3.5); Cholesterol 143 mg/dl (140-200); Estimated Glomerular Filt Rate 130 ml/min (>60); GFR (African American) 157 ML/MIN (>60); Globulin 2.9 g/dL (1.3-3.2); Glucose 102 mg/dl (74-100); HDL Cholesterol 52 mg/dl (40-60); Potassium 4.2 mmoL/L (3.5-5.1); Sodium 138 mmol/L (136-145); Total Protein,Serum 6.9 g/dl (6.3-8.2); Triglycerides 59 mg/dl (30-150); VLDL Cholesterol 12 mg/dL (0-40)
[2024-03-04 11:02] LABS: Basophils # 0.1 K/mm3 (0-0.2); Basophils % 0.9 % (0.1-2.0); Eosinophils # 0.1 K/mm3 (0.0-0.4); Eosinophils % 1.3 % (0.1-12.0); Hemoglobin 15.3 g/dL (12.2-16.2); Lymphocytes # 1.5 K/mm3 (0.7-4.5); Lymphocytes % 21.5 % (10-50); Mean Corpuscular HGB Conc 33.9 g/dL (31.8-35.4); Mean Corpuscular Hemoglobin 32.2 pg (27.0-31.2); Mean Corpuscular Volume 94.8 fl (81-99); Mean Platelet Volume 8.4 fl (7.4-10.4); Monocytes # 0.6 K/mm3 (0.1-1.0); Monocytes % 8.7 % (1.7-9.3); Neutrophils # 4.6 K/mm3 (1.8-7.8); Neutrophils % 67.5 % (37.0-80.0); Platelet Count 205 K/mm3 (142-424); Red Blood Count 4.75 M/mm3 (4.20-5.40); Red Cell Distribution Width 13.4 % (11.5-17.5); White Blood Count 6.8 K/mm3 (4.8-10.8)
[2024-03-04 11:04] LABS: Activated Partial Thrombo Time 28.9 seconds (22.8-30.6); INR 0.96 (0.9-1.1); Prothrombin Time 10.8 seconds (10.1-12.5)
[2024-03-04 11:31] LABS: Thyroid Stimulating Hormone 0.94 uIU/mL (0.465-4.68)
== END 2024-03-04 23:59 | disposition home or self-care (01) ==
LOC: LAB 10:21
PROVIDERS: PCP Family Medicine; Visit Provider Family Medicine
DX: R23.3 Spontaneous ecchymoses (principal)
CPT/HCPCS: 36415; 80050; 80053; 80061; 84443; 85025; 85610; 85730

== ENCOUNTER 2024-07-22 10:47 | Outpatient (CLI) | payer OTHER, SELFPAY ==
[2024-07-22 11:21] LABS: Basophils % 0.6 % (0.1-2.0); Eosinophils # 0.1 K/mm3 (0.0-0.4); Eosinophils % 0.9 % (0.1-12.0); Hematocrit 46.2 % (37.0-47.0); Hemoglobin 15.4 g/dL (12.2-16.2); Lymphocytes # 1.3 K/mm3 (0.7-4.5); Lymphocytes % 17.2 % (10-50); Mean Corpuscular HGB Conc 33.3 g/dL (31.8-35.4); Mean Corpuscular Hemoglobin 31.2 pg (27.0-31.2); Mean Corpuscular Volume 93.8 fl (81-99); Mean Platelet Volume 8.1 fl (7.4-10.4); Monocytes # 0.4 K/mm3 (0.1-1.0); Monocytes % 5.7 % (1.7-9.3); Neutrophils # 5.8 K/mm3 (1.8-7.8); Neutrophils % 75.5 % (37.0-80.0); Platelet Count 227 K/mm3 (142-424); Red Blood Count 4.93 M/mm3 (4.20-5.40); Red Cell Distribution Width 12.6 % (11.5-17.5); White Blood Count 7.7 K/mm3 (4.8-10.8)
[2024-07-22 11:30] LABS: Activated Partial Thrombo Time 27.3 seconds (22.8-30.6); INR 0.94 (0.9-1.1); Prothrombin Time 10.6 seconds (10.1-12.5)
== END 2024-07-22 23:59 | disposition home or self-care (01) ==
LOC: LAB 10:49
PROVIDERS: PCP Family Medicine; Visit Provider Family Medicine
DX: T14.8XXA Other injury of unspecified body region, initial encounter (principal)
CPT/HCPCS: 36415; 85025; 85610; 85730

== ENCOUNTER 2024-10-09 15:42 | Outpatient (CLI) | payer OTHER, SELFPAY ==
--- NOTE | 2024-10-09 15:46 | XR_ITS ---
FINAL REPORT CLINICAL HISTORY: low back pain; no h/o injury COMPARISON: None FINDINGS: AP and lateral views of the lumbar spine were obtained. There is no prior exam for comparison. There is no acute fracture or malalignment. Vertebral body height is preserved. There is mild degenerative disc disease at L1-2. No acute paraspinal abnormality. IMPRESSION: Mild L1-2 degenerative changes. No acute osseous abnormality of the lumbar spine. Reviewed, Interpreted and Dictated by Corinna Chan MD Transcribed by Catalina Silverman Authenticated and [facility]
== END 2024-10-09 23:59 | disposition home or self-care (01) ==
LOC: RAD 15:43
PROVIDERS: PCP Family Medicine; Visit Provider Family Medicine
DX: M54.50 Low back pain, unspecified (principal)
CPT/HCPCS: 72100

== ENCOUNTER 2024-10-26 10:08 | Outpatient (CLI) | payer OTHER, SELFPAY ==
[2024-10-26 10:48] LABS: Basophils % 0.5 % (0.1-2.0); Eosinophils # 0.1 K/mm3 (0.0-0.4); Eosinophils % 1.2 % (0.1-12.0); Hematocrit 44.7 % (37.0-47.0); Hemoglobin 15.4 g/dL (12.2-16.2); Lymphocytes # 1.8 K/mm3 (0.7-4.5); Lymphocytes % 23.5 % (10-50); Mean Corpuscular HGB Conc 34.5 g/dL (31.8-35.4); Mean Corpuscular Hemoglobin 31.2 pg (27.0-31.2); Mean Corpuscular Volume 90.7 fl (81-99); Mean Platelet Volume 10.5 fl (7.4-10.4); Monocytes # 0.8 K/mm3 (0.1-1.0); Monocytes % 9.9 % (1.7-9.3); Neutrophils % 64.5 % (37.0-80.0); Platelet Count 258 K/mm3 (142-424); Red Blood Count 4.93 M/mm3 (4.20-5.40); Red Cell Distribution Width 11.8 % (11.5-17.5); White Blood Count 7.8 K/mm3 (4.8-10.8)
[2024-10-28 12:10] LABS: C difficile Toxins AB, EIA Negative (Negative)
[2024-10-28 14:20] LABS: H. pylori Stool Ag, EIA Negative (Negative)
== END 2024-10-26 23:59 | disposition home or self-care (01) ==
LOC: LAB 10:09
PROVIDERS: PCP Family Medicine; Visit Provider Nurse Practitioner Family
DX: K92.1 Melena (principal)
CPT/HCPCS: 36415; 85025; 87045; 87205; 87324; 87338